=== PATIENT | female | born 1995 | race American Indian/Alaskan Native ===

== ENCOUNTER 2018-01-24 09:24 | Emergency (ER) | payer SELFPAY ==
[2018-01-24 09:38] VITALS: BP 116/71
--- NOTE | 2018-01-24 10:07 | Emergency Department Report ---
ED Headache HPI - General Chief Complaint: Headache Stated Complaint: HEADACHE (2WEEKS) Time Seen by Provider: 01/24/18 09:52 - History of Present Illness Initial Comments: 22-year-old female reports left temporal intermittent headaches 2 weeks. He also reports toothache on the left side. States tooth pain is resolved with ibuprofen and the headache pain is not. States looking at her phone and the brightness from her cell phone makes headache worse. Denies fever, vomiting, numbness, weakness, URI symptoms. Timing/Duration: other (2 weeks) Quality: moderate Recent Head Trauma: no recent headache/trauma, other (no recent head trauma) Modifying Factors: improves with: exposure to light Associated Symptoms: denies: confusion, fever/chills, nausea/vomiting, nasal congestion, nasal drainage, numbness in legs/feet, rash, stiff neck, vision changes, weakness Allergies/Adverse Reactions: Allergies No Known Allergies Allergy (Unverified 01/24/18 09:36) Home Medications: Ambulatory Orders Butalb/Acetamin/Caff 50-325-40 [Fioricet] 1 each PO Q4H PRN #7 tablet 01/24/18 Naproxen [Naprosyn] 500 mg PO BID #20 tablet 01/24/18 ED Review of Systems ROS: Stated complaint: HEADACHE (2WEEKS) Other details as noted in HPI Comment: All other systems reviewed and negative Constitutional: denies: chills, fever Eyes: denies: vision change ENT: other (reports left sided toothache) Respiratory: denies: cough, shortness of breath Gastrointestinal: denies: nausea, vomiting Skin: denies: rash Neurological: headache. denies: weakness, numbness, confusion, abnormal gait, vertigo ED Past Medical Hx - Past Medical History Previous Medical History?: No - Surgical History Past Surgical History?: No - Social History Smoking Status: Current Every Day Smoker Substance Use Type: None - Medications Home Medications: Home Medications Medication Instructions Recorded Confirmed Last Taken Type Butalb/Acetamin/Caff 50-325-40 1 each PO Q4H PRN #7 tablet 01/24/18 Unknown Rx [Fioricet] Naproxen [Naprosyn] 500 mg PO BID #20 tablet 01/24/18 Unknown Rx ED Physical Exam - General Limitations: No Limitations General appearance: alert, in no apparent distress, other (appears nontoxic, headphones in ears, looking at cellphone) - Head Head exam: Present: atraumatic, normocephalic - Eye Eye exam: Present: normal appearance, PERRL, EOMI. Absent: conjunctival injection - ENT ENT exam: Present: mucous membranes moist - Neck Neck exam: Present: normal inspection, full ROM. Absent: meningismus - Respiratory Respiratory exam: Present: normal lung sounds bilaterally. Absent: respiratory distress - Cardiovascular Cardiovascular Exam: Present: regular rate, normal rhythm - GI/Abdominal GI/Abdominal exam: Present: soft. Absent: tenderness - Extremities Exam Extremities exam: Present: normal inspection - Neurological Exam Neurological exam: Present: alert, oriented X3, CN II-XII intact, normal gait. Absent: motor sensory deficit - Psychiatric Psychiatric exam: Present: normal affect, normal mood - Skin Skin exam: Present: warm, dry, intact, normal color. Absent: rash ED Course Vital Signs 01/24/18 09:36 Temperature 98.6 F Pulse Rate 75 Respiratory 16 Rate Blood Pressure 116/71 O2 Sat by Pulse 99 Oximetry ED Medical Decision Making - Medical Decision Making 22-year-old female reports intermittent left temporal headaches 2 weeks. No neurological deficits. Patient appears comfortable and nontoxic. Patient was unsure whether or not she could be . However UPT negative. Will give prescription for Fioricet. Patient given return precautions and outpatient follow-up information - Differential Diagnosis , UTI, tension HERNANDEZ, migraine HERNANDEZ Critical care attestation.: If time is entered above; I have spent that time in minutes in the direct care of this critically ill patient, excluding procedure time. ED Disposition Clinical Impression: Headache, tension-type Disposition: - TO HOME OR SELFCARE Is pt being admited?: No Condition: Stable Instructions: Tension Headache (ED) Prescriptions: Butalb/Acetamin/Caff 50-325-40 [Fioricet] 1 each PO Q4H PRN #7 tablet PRN Reason: Headache Naproxen [Naprosyn] 500 mg PO BID #20 tablet Referrals: PRIMARY CARE, [Primary Care Provider] - 3-5 Days [facility] [Provider Group] - 3-5 Days [facility] [Outside] - 3-5 Days Time of Disposition: 11:35
[2018-01-24 11:16] LABS: Bilirubin,Urine NEG (Negative); Blood,Urine NEG (Negative); Color,Urine Yellow (Yellow); Mucus,Urine FEW /HPF; Protein,Urine <15 mg/dL mg/dL (Negative); Urobilinogen,Urine < 2.0 mg/dL (<2.0); WBC,Urine < 1.0 /HPF (0.0-6.0)
[2018-01-24 11:24] LABS: HCG Qualitative,Urine Negative (Negative)
== END 2018-01-24 11:45 | disposition home or self-care (01) ==
LOC: ED 09:24
DX: G44.209 Tension-type headache, unspecified, not intractable (principal); K08.89 Other specified disorders of teeth and supporting structures; F17.200 Nicotine dependence, unspecified, uncomplicated
CPT/HCPCS: 81001; 81025; 99283

== ENCOUNTER 2018-02-01 14:44 | Emergency (ER) | payer OTHER ==
[2018-02-01 15:02] VITALS: BP 116/75
[2018-02-01] MEDS ORDERED: REGLAN IV ONE (18:00)
[2018-02-01] MEDS ORDERED: NACL 0.9% 1000 ML 1,000 ML IV ONE (18:00)
[2018-02-01] MEDS ORDERED: BENADRYL IV ONE (18:00)
[2018-02-01] MEDS ORDERED: TORADOL IV ONE (18:00)
--- NOTE | 2018-02-01 18:41 | Emergency Department Report ---
ED Headache HPI - General Chief Complaint: Headache Stated Complaint: TENSION HEADACHE Time Seen by Provider: 02/01/18 17:29 Source: patient Exam Limitations: no limitations - History of Present Illness Timing/Duration: episodic, waxing and waning (6-7 days) Quality: moderate Head Injury Location: temporal Recent Head Trauma: frequent headaches (was seen here 2 weeks ago, diagnosed with tension headache reports her symptoms have not yet improved. She continues to have left-sided, dull, throbbing headaches worsen with light and sound. No scotomas, presyncope, tinnitus, nausea, vomiting, neck pain, fever, chills or sweats.) Associated Symptoms: denies: confusion, fatigue, facial pain, nausea/vomiting, nasal congestion, sinus infection, stiff neck, weakness Allergies/Adverse Reactions: Allergies No Known Allergies Allergy (Unverified 01/24/18 09:36) Home Medications: Ambulatory Orders Butalb/Acetamin/Caff 50-325-40 [Fioricet] 1 each PO Q4H PRN #7 tablet 01/24/18 Naproxen [Naprosyn] 500 mg PO BID #20 tablet 01/24/18 Butalb/Acetaminophen/Caffeine [Fioricet 50-300-40 mg CAP] 1 cap PO Q8HR PRN #20 cap 02/01/18 ED Review of Systems ROS: Stated complaint: TENSION HEADACHE Other details as noted in HPI Constitutional: denies: chills, fever Eyes: denies: eye pain, eye discharge, vision change ENT: denies: ear pain, throat pain Respiratory: denies: cough, shortness of breath, wheezing Cardiovascular: denies: chest pain, palpitations Endocrine: no symptoms reported Gastrointestinal: denies: abdominal pain, nausea, diarrhea Genitourinary: denies: urgency, dysuria, discharge Musculoskeletal: denies: back pain, joint swelling, arthralgia Skin: denies: rash, lesions Neurological: headache. denies: weakness, paresthesias Psychiatric: denies: anxiety, depression Hematological/Lymphatic: denies: easy bleeding, easy bruising ED Past Medical Hx - Past Medical History Previous Medical History?: No - Surgical History Past Surgical History?: No - Social History Smoking Status: Current Every Day Smoker Substance Use Type: None - Medications Home Medications: Home Medications Medication Instructions Recorded Confirmed Last Taken Type Butalb/Acetamin/Caff 50-325-40 1 each PO Q4H PRN #7 tablet 01/24/18 Unknown Rx [Fioricet] Naproxen [Naprosyn] 500 mg PO BID #20 tablet 01/24/18 Unknown Rx Butalb/Acetaminophen/Caffeine 1 cap PO Q8HR PRN #20 cap 02/01/18 Unknown Rx [Fioricet 50-300-40 mg CAP] ED Physical Exam - General Limitations: No Limitations General appearance: alert, in no apparent distress - Head Head exam: Present: atraumatic, normocephalic - Eye Eye exam: Present: normal appearance, other (no papilledema, flame hemorrhage, cotton wool spot, normal cup to disc ratio). Absent: conjunctival injection, periorbital tenderness - Expanded Eye Exam Expanded Pupils: Regular, Round: Bilateral, Reactive: Bilateral Sclera/Conjunctival: Normal Inspection: Bilateral - ENT ENT exam: Present: mucous membranes moist - Neck Neck exam: Present: normal inspection - Respiratory Respiratory exam: Present: normal lung sounds bilaterally. Absent: respiratory distress - Cardiovascular Cardiovascular Exam: Present: regular rate, normal rhythm. Absent: systolic murmur, diastolic murmur, rubs, gallop - GI/Abdominal GI/Abdominal exam: Present: soft, normal bowel sounds - Extremities Exam Extremities exam: Present: normal inspection - Back Exam Back exam: Present: normal inspection - Neurological Exam Neurological exam: Present: alert, oriented X3, CN II-XII intact, normal gait - Psychiatric Psychiatric exam: Present: normal affect, normal mood - Skin Skin exam: Present: warm, dry, intact, normal color. Absent: rash ED Course Vital Signs 02/01/18 02/01/18 14:58 18:16 Temperature 98.7 F Pulse Rate 76 Respiratory 16 18 Rate Blood Pressure 116/75 O2 Sat by Pulse 98 Oximetry Critical care attestation.: If time is entered above; I have spent that time in minutes in the direct care of this critically ill patient, excluding procedure time. ED Disposition Clinical Impression: Cephalgia Disposition: DC-01 TO HOME OR SELFCARE Is pt being admited?: No Does the pt Need Aspirin: No Condition: Stable Instructions: Migraine Headache (ED), Cluster Headache (ED), Acute Headache (ED ) Prescriptions: Butalb/Acetaminophen/Caffeine [Fioricet 50-300-40 mg CAP] 1 cap PO Q8HR PRN #20 cap PRN Reason: Headache Referrals: PRIMARY CARE, [Primary Care Provider] - 3-5 Days
== END 2018-02-01 19:25 | disposition home or self-care (01) ==
LOC: ED 14:44
DX: R51 Headache (principal); F17.200 Nicotine dependence, unspecified, uncomplicated
CPT/HCPCS: 96374; 96375; 99282; J1200; J1885; J2765; J7030